=== PATIENT | female | born 1955 | race Hispanic/Latino ===

== ENCOUNTER 2020-06-13 09:57 | Emergency (ER) | payer MEDICAID, OTHER ==
[2020-06-13 10:51] LABS: ALT (SGPT) 10 U/L (8-55); AST (SGOT) 16 U/L (5-34); Albumin 2.7 g/dL (3.4-4.8); Alkaline Phosphatase 234 U/L (40-110); Anion Gap 18 mmol/L (10-20); BUN (Urea Nitrogen) 46 mg/dL (9.8-20.1); Bilirubin, Total 0.7 mg/dL (0.2-1.2); Calc. Creatinine Clearance 0 mL/min (70-130); Calcium 7.6 mg/dL (7.8-10.44); Carbon Dioxide 17 mmol/L (23-31); Chloride 106 mmol/L (98-107); Estimated GFR-MDRD 16; Globulin 4.3 g/dL (2.4-3.5); Glucose 166 mg/dL (80-115); Potassium 5.4 mmol/L (3.5-5.1); Sodium 136 mmol/L (136-145)
[2020-06-13] MEDS ORDERED: Cefepime 1 GM VIAL ONE (11:23)
[2020-06-13 11:47] LABS: #Lymphocytes 0.4 thou/uL (1.20-3.40); #Monocytes 0.4 thou/uL (0.11-0.59); #Neutrophils 17.3 thou/uL (1.40-6.50); %Basophils 0.3 % (0.0-1.0); %Eosinophils 0.1 % (0.0-10.0); %Lymphocytes 2.1 % (21.0-51.0); %Monocytes 1.9 % (0.0-10.0); %Neutrophils 95.6 % (42.0-75.0); Anisocytosis MODERATE=16-30 cells (100X) (0-5/hpf); Basophilic Stippling SLIGHT = 1-2 cells (100X) (None Seen); Hemoglobin 6.4 g/dL (12.0-16.0); Hypochromia SLIGHT = 6-15 cells (100X) (0-5/hpf); Large Platelets SLIGHT; MDiff Complete? YES; Macrocytosis SLIGHT = 6-15 cells (100X) (0-5/hpf); Mean Corpuscular HGB CONC 28.8 g/dL (32.0-36.0); Mean Platelet Volume 5.1 fL (7.4-10.4); Microcytosis SLIGHT = 6-15 cells (100X) (0-5/hpf); Platelet Count 378 thou/uL (130-400); Platelet Morphology Comment Appears Adequate; Polychromasia SLIGHT = 2-3 cells (100X) (0-2/hpf); RBC Distribution Width 20.3 % (11.5-14.5); Red Blood Cell (RBC) Count 2.13 mill/uL (4.20-5.40); Target Cells SLIGHT = 2-5 cells (100X) (0-1/hpf); White Blood Cell (WBC) Count 18.1 thou/uL (4.8-10.8)
--- NOTE | 2020-06-13 12:19 | RAD ---
PORTABLE CHEST: Date: 06/13/2020 No prior films are available for comparison. A portable film at 1124 hours shows moderate cardiomegaly, vascular congestion, and some bilateral pl eural effusions. The findings suggest congestive heart failure. Basilar pneumonias would be easily hi dden in the opacity in the lower chest, so one should correlate with other clinical symptoms and lab findings. Arteriosclerotic change is seen in the aorta. IMPRESSION: CHF. POS: HOME
[2020-06-13 12:39] LABS: Bilirubin Negative (Negative); Blood, Urine Small (Negative); Clarity Cloudy (Clear); Glucose, Urine (Dipstick) Negative (Negative); Ketone, Urine Negative (Negative); Leukocyte Moderate (Negative); Nitrite Negative (Negative); Protein, Urine (Dipstick) > or equal to 300 mg/dL (Neg-Trace); Specific Gravity, Urine 1.015 (1.005-1.030); Urobilinogen 0.2 mg/dL (Less than 2); pH, Urine 5.5 (5.0-9.0)
[2020-06-13 12:48] LABS: Bacteria/HPF 3+ HPF (None Seen); Mucous/LPF 1+ LPF (<2+); Squamous Epithelial 0-3 HPF (0-3); WBC/HPF Greater Than 50 HPF (0-3)
--- NOTE | 2020-06-13 13:12 | CT ---
CT ABDOMEN AND PELVIS WITHOUT CONTRAST: Date: 06/13/[address] was done for evaluation of abdominal distention. No contrast was used due to very po or renal function. Significant bilateral pleural effusions are present, left greater than right. I do not see any obviou s lobar consolidations, though there is some basilar atelectasis. Some pericardial fluid is present a s well. The major finding in the abdomen is massive ascites. The bowel itself is not distended at any point. The liver, spleen, pancreas, kidneys, adrenal glands, and abdominal aorta show no acute findings with in the limitations of a noncontrast study. No free air seen in the abdomen. There has been a prior ch olecystectomy. CT of the pelvis was remarkable for the large amount of fluid, probable calcified uterine fibroids, a nd air in the urinary bladder. I understand the patient was catheterized recently. IMPRESSION: 1. Abdominal distention is due to massive ascites. 2. Bilateral pleural effusions. 3. No sign of bowel distention or obstruction. 4. Air in the urinary bladder, apparently due to recent catheterization. Findings discussed with Dr. Garcia at 1250 hours on 06/13/2020. CODE CR. POS: HOME
[2020-06-13] MEDS ORDERED: Pantoprazole 40 MG VIAL ONE (14:14)
[2020-06-13 14:25] LABS: Lactic Acid 0.9 mmol/L (0.5-2.2)
== END 2020-06-13 15:11 | disposition short-term general hospital (02) ==
LOC: BURERS 09:57
DX: A41.9 Sepsis, unspecified organism (principal); N39.0 Urinary tract infection, site not specified; I50.9 Heart failure, unspecified; K92.1 Melena; D64.9 Anemia, unspecified; E11.9 Type 2 diabetes mellitus without complications; Z79.899 Other long term (current) drug therapy; Z79.84 Long term (current) use of oral hypoglycemic drugs
CPT/HCPCS: 36415; 36416; 36430; 51701; 71045; 74176; 80053; 81003; 81015; 82274; 83605; 83880; 84484; 85025; 86850; 86900; 86901; 87040; 87077; 87086; 87186; 93005; 96361; 96374; 96375; C9113; J0692; P9016